=== PATIENT | female | born 1970 | race Caucasian/White ===

== ENCOUNTER → 2017-07-06 | Outpatient (CLI) | payer OTHER ==
--- NOTE | 2017-07-07 09:09 | MM ---
Reason for exam: screening (asymptomatic). Last mammogram was performed 1 year and 3 months ago. History: Family history of breast cancer in mother at age 57. Physical Findings: A clinical breast exam by your physician is recommended on an annual basis and results should be correlated with mammographic findings. MG Screening Mammo w CAD Bilateral CC and MLO view(s) were taken. Prior study comparison: March 27, 2016, bilateral MG screening mammo w CAD. June 25, 2010, bilateral digital screening mammogram. The breast tissue is heterogeneously dense. This may lower the sensitivity of mammography. Focal asymmetry lower right MLO view 9.7cm from nipple. This finding is changed when compared with previous exams. ASSESSMENT: Incomplete: need additional imaging evaluation, BI-RAD 0 RECOMMENDATION: Special view mammogram of the right breast. If lesion persists on supplemental views, image directed ultrasound is recommended. [facility] will attempt to contact patient to return for supplemental views and ultrasound if indicated.
== END | disposition home or self-care (01) ==
LOC: RADMAMWWP 10:56
PROVIDERS: ATTEND Family Medicine
DX: Z12.31 Encounter for screening mammogram for malignant neoplasm of breast (principal)
CPT/HCPCS: 77067

== ENCOUNTER → 2017-07-08 | Outpatient (CLI) | payer OTHER ==
--- NOTE | 2017-07-08 11:13 | MM ---
Reason for exam: additional evaluation requested from abnormal screening. Last mammogram was performed less than 1 month ago. History: Family history of breast cancer in mother at age 57. Physical Findings: Nurse Summary: 1cm nodule in the right breast at 3-4 o'clock (nurse kp). MG Work Up Mamm w CAD RT LM and spot compression MLO view(s) were taken of the right breast. Prior study comparison: July 06, 2017, bilateral MG screening mammo w CAD. March 27, 2016, bilateral MG screening mammo w CAD. The breast tissue is heterogeneously dense. This may lower the sensitivity of mammography. There is no discrete abnormality. Area disperses normally with compression. These results were verbally communicated with the patient and result sheet given to the patient on 07/08/17. ASSESSMENT: Incomplete: need additional imaging evaluation, BI-RAD 0 RECOMMENDATION: Ultrasound of the right breast.
--- NOTE | 2017-07-08 11:17 | USB ---
Reason for exam: additional evaluation requested from abnormal screening. History: Family history of breast cancer in mother at age 57. US Breast Workup Limited RT Right breast ultrasound demonstrates a 0.9 x 1.0 x 0.3cm oval, hypoechoic lesion at 3 o'clock, superficial subcutaneous tissue. These results were verbally communicated with the patient and result sheet given to the patient on 07/08/17. ASSESSMENT: Probably benign, BI-RAD 3 RECOMMENDATION: Return to routine screening mammogram schedule for both breasts. Manage on a clinical basis with regard to patient skin lesion.
== END | disposition home or self-care (01) ==
LOC: RADMAMWWP 09:44
PROVIDERS: ATTEND Family Medicine
DX: R92.8 Other abnormal and inconclusive findings on diagnostic imaging of breast (principal)
CPT/HCPCS: 77065

== ENCOUNTER → 2020-10-31 | Outpatient (CLI) | payer OTHER ==
--- NOTE | 2020-11-05 09:26 | MM ---
Reason for exam: screening (asymptomatic). Last mammogram was performed 3 years and 4 months ago. History: Patient history of other cancer. Family history of breast cancer in mother at age 57. Taking hormonal contraceptives for 3 years. Physical Findings: A clinical breast exam by your physician is recommended on an annual basis and results should be correlated with mammographic findings. MG Screening Mammo w CAD Bilateral CC and MLO view(s) were taken. XCCL view(s) were taken of the right breast. Prior study comparison: July 08, 2017, right breast MG work up mamm w CAD RT. July 06, 2017, bilateral MG screening mammo w CAD. The breast tissue is heterogeneously dense. This may lower the sensitivity of mammography. ASSESSMENT: Benign, BI-RAD 2 RECOMMENDATION: Routine screening mammogram of both breasts in 1 year.
== END | disposition home or self-care (01) ==
LOC: RADMAMWWP 12:39
PROVIDERS: ATTEND Family Medicine
DX: Z12.31 Encounter for screening mammogram for malignant neoplasm of breast (principal); Z80.3 Family history of malignant neoplasm of breast
CPT/HCPCS: 77067

== ENCOUNTER → 2022-02-25 | Outpatient (CLI) | payer OTHER ==
--- NOTE | 2022-03-03 15:16 | MM ---
Reason for Exam: Screening (asymptomatic). Last mammogram was performed 1 year(s) and 4 month(s) ago. Patient History: Menarche at age 15. First Full-Term at age 20. Other cancer. Currently using Hormonal Contraceptives, for 3 years. Mother had breast cancer, age 57. Risk Values: Britney 5 year model risk: 1.7%. NCI Lifetime model risk: 16.3%. Prior Study Comparison: 07/06/2017 Bilateral Screening Mammogram, [facility]. 07/08/2017 Right Diagnostic Mammogram, [facility]. 10/31/2020 Bilateral Screening Mammogram, [facility]. Tissue Density: There are scattered fibroglandular densities. Findings: Analyzed By CAD. Pattern is stable. No suspicious groups of microcalcifications, spiculated or lobular masses, architectural distortion or other secondary signs of malignancy are mammographically apparent. Overall Assessment: Benign, BI-RAD 2 Management: Screening Mammogram of both breasts in 1 year. A negative mammogram report should not preclude additional follow up of suspicious palpable abnormalities. Patient should continue monthly self breast exam. A clinical breast exam by your physician is recommended on an annual basis and results should be correlated with mammographic findings. Electronically signed and approved by: Kit Casas D.O. Radiologis
== END | disposition home or self-care (01) ==
LOC: RADMAMWWP 15:55
PROVIDERS: ATTEND Family Medicine
DX: Z12.31 Encounter for screening mammogram for malignant neoplasm of breast (principal); Z80.3 Family history of malignant neoplasm of breast
CPT/HCPCS: 77067

== ENCOUNTER → 2023-03-19 | Outpatient (CLI) | payer OTHER ==
--- NOTE | 2023-03-20 21:12 | MM ---
Reason for Exam: Screening (asymptomatic). Last mammogram was performed 1 year(s) and 1 month(s) ago. Patient History: Menarche at age 15. First Full-Term at age 20. Other cancer. Currently using Hormonal Contraceptives, for 3 years. Mother had breast cancer, age 57. Last menstrual period: 03/06/2023 Risk Values: Britney 5 year model risk: 1.8%. NCI Lifetime model risk: 16.0%. Prior Study Comparison: 07/08/2017 Right Diagnostic Mammogram, [facility]. 10/31/2020 Bilateral Screening Mammogram, [facility]. 02/25/2022 Bilateral MG screening mammo w CAD, [facility]. Tissue Density: There are scattered fibroglandular densities. Findings: Analyzed By CAD. In the right breast on the MLO view, superiorly and anterior to middle depth, in area of asymmetric density persists on 3-D images. Further evaluation is recommended. Otherwise, no significant change. Overall Assessment: Incomplete: need additional imaging evaluation, BI-RAD 0 Management: Special View Mammogram of the right breast. Diagnostic Breast Ultrasound of the right breast. Additional views to include spot 3-D MLO and 3-D lateral views. Targeted right breast ultrasound if any persistent abnormality. [facility] will attempt to contact patient to return for supplemental views and ultrasound if indicated. Electronically signed and approved by: Santa Fox M.D. Radiologist
== END | disposition home or self-care (01) ==
LOC: RADMAMWWP 14:50
PROVIDERS: ATTEND Family Medicine
DX: Z12.31 Encounter for screening mammogram for malignant neoplasm of breast (principal); Z80.3 Family history of malignant neoplasm of breast
CPT/HCPCS: 77063; 77067

== ENCOUNTER → 2023-04-22 | Outpatient (CLI) | payer OTHER ==
--- NOTE | 2023-04-22 13:59 | MM ---
Reason for Exam: Follow-up at short interval from prior study. Last screening mammogram was performed 1 month(s) ago. Patient History: Menarche at age 15. First Full-Term at age 20. Other cancer. Currently using Hormonal Contraceptives, for 3 years. Mother had breast cancer, age 57. Last menstrual period: 04/15/2023 Risk Values: Britney 5 year model risk: 1.8%. NCI Lifetime model risk: 16.0%. Tissue Density: Right: The breast tissue is heterogeneously dense. This may lower the sensitivity of mammography. Findings: Analyzed By CAD. The questioned area of asymmetric density superiorly becomes less defined on 3-D and standard 3-D lateral views suggesting superimposition shadow. Given the appearance on the screening exam, precautionary six-month follow-up is recommended. Overall Assessment: Probably benign, BI-RAD 3 Management: Diagnostic Mammogram of the right breast in 6 months. . Results were given to the patient verbally at the time of exam. Patient should continue monthly self-breast exams. A clinical breast exam by your physician is recommended on an annual basis. This exam should not preclude additional follow-up of suspicious palpable abnormalities. Note on Britney scores and lifetime risk: 1. A Britney score greater than 3% is considered moderate risk. If this is the case, consider specialist referral to assess eligibility for a risk reducing agent. 2. If overall lifetime risk for the development of breast cancer is 20% or higher, the patient may qualify for future screening with alternating mammogram and breast MRI. Electronically signed and approved by: Santa Fox M.D. Radiologist
== END | disposition home or self-care (01) ==
LOC: RADMAMWWP 13:24
PROVIDERS: ATTEND Family Medicine
DX: R92.331 Mammographic heterogeneous density, right breast (principal); Z80.3 Family history of malignant neoplasm of breast
CPT/HCPCS: 77065; G0279; 77061

== ENCOUNTER → 2023-10-22 | Outpatient (CLI) | payer OTHER ==
--- NOTE | 2023-10-22 15:06 | MM ---
Reason for Exam: Follow-up at short interval from prior study. Last screening mammogram was performed 7 month(s) ago. Patient History: Menarche at age 15. First Full-Term at age 20. Other cancer. Currently using Hormonal Contraceptives, for 3 years. Mother had breast cancer, age 57. Risk Values: Britney 5 year model risk: 1.9%. NCI Lifetime model risk: 15.8%. Prior Study Comparison: 02/25/2022 Bilateral MG screening mammo w CAD, [facility]. 03/19/2023 Bilateral MG 3D screening mammo w/cad, [facility]. 04/22/2023 Right MG 3D work up w/cad RT, [facility]. Tissue Density: Right: The breasts are heterogeneously dense, which may obscure small masses. Findings: Analyzed By CAD. The previous superior asymmetric density has not persisted. Findings compatible with superimposition shadow. Chronic nodularity inferior at a middle depth. No significant change from prior exams. Overall Assessment: Benign, BI-RAD 2 Management: Screening Mammogram of both breasts in 6 months. . Results were given to the patient verbally at the time of exam. Patient should continue monthly self-breast exams. A clinical breast exam by your physician is recommended on an annual basis. This exam should not preclude additional follow-up of suspicious palpable abnormalities. Note on Britney scores and lifetime risk: 1. A Britney score greater than 3% is considered moderate risk. If this is the case, consider specialist referral to assess eligibility for a risk reducing agent. 2. If overall lifetime risk for the development of breast cancer is 20% or higher, the patient may qualify for future screening with alternating mammogram and breast MRI. Electronically signed and approved by: Santa Fox M.D. Radiologist
== END | disposition home or self-care (01) ==
LOC: RADMAMWWP 14:21
PROVIDERS: ATTEND Family Medicine
DX: R92.331 Mammographic heterogeneous density, right breast (principal); Z80.3 Family history of malignant neoplasm of breast
CPT/HCPCS: 77065; G0279; 77061

== ENCOUNTER → 2023-10-22 | Outpatient (CLI) | payer OTHER ==
--- NOTE | 2023-10-22 15:45 | CTL ---
EXAMINATION TYPE: CT Low Dose Lung DATE OF EXAM ORDERED: 10/22/2023 HISTORY: Lung cancer screening CT DLP: 157.[address] CTDI: 4.0 mGy Automated exposure control for dose reduction was used. COMPARISON: None TECHNIQUE: Low dose computed tomography scan was performed through the chest at 1 mm thick sections a nd reconstructed images in multiple planes at 1 mm and [address] DIAGNOSTIC QUALITY: Satisfactory FINDINGS: There is no suspicious lung mass or nodule The lungs are clear and there is no abnormal consolidation or interstitial density. There are bilateral single short axis 15 mm axillary lymph nodes. Represent reactionary lymph nodes b ut short-term follow-up or fine needle aspiration is recommended. There is no pleural effusion, pleural thickening or pneumothorax. No focal osseous lesions are seen. Limited scans the upper abdomen reveals no gross adenopathy. IMPRESSION: 1. BI-RADS Category 1 negative. Continue routine screening at yearly intervals. 2. Mild bilateral axillary adenopathy. Short-term follow-up or fine needle aspiration is recommended.
== END | disposition home or self-care (01) ==
LOC: RADCTMAIN 13:53
PROVIDERS: ATTEND Family Medicine
DX: Z12.2 Encounter for screening for malignant neoplasm of respiratory organs (principal); R59.0 Localized enlarged lymph nodes; F17.210 Nicotine dependence, cigarettes, uncomplicated
CPT/HCPCS: 71271

== ENCOUNTER → 2024-10-04 | Outpatient (CLI) | payer OTHER ==
--- NOTE | 2024-10-05 07:37 | MM ---
Reason for Exam: Screening (asymptomatic). Last mammogram was performed 1 year(s) and 6 month(s) ago. Patient History: Menarche at age 15. First Full-Term at age 20. Perimenopausal. Other cancer. Currently using Hormonal Contraceptives, for 3 years. Mother had breast cancer, age 57. Last menstrual period: 10/04/2024 Risk Values: Britney 5 year model risk: 2.0%. NCI Lifetime model risk: 15.5%. Prior Study Comparison: 03/19/2023 Bilateral MG 3D screening mammo w/cad, [facility]. 04/22/2023 Right MG 3D work up w/cad RT, [facility]. 10/22/2023 Right MG 3D diag mammo w/cad RT, [facility]. Tissue Density: The breasts are heterogeneously dense, which may obscure small masses. Findings: Analyzed By CAD. There is no suspicious group of microcalcifications or new suspicious mass in either breast. Overall Assessment: Benign, BI-RAD 2 Management: Screening Mammogram of both breasts in 1 year. . Patient should continue monthly self-breast exams. A clinical breast exam by your physician is recommended on an annual basis. This exam should not preclude additional follow-up of suspicious palpable abnormalities. Note on Britney scores and lifetime risk: 1. A Britney score greater than 3% is considered moderate risk. If this is the case, consider specialist referral to assess eligibility for a risk reducing agent. 2. If overall lifetime risk for the development of breast cancer is 20% or higher, the patient may qualify for future screening with alternating mammogram and breast MRI. [facility], , 10/05/2024 7:34 AM. Electronically signed and approved by: Alber Ferrari M.D. Radiologis
== END | disposition home or self-care (01) ==
LOC: RADMAMWWP 16:34
PROVIDERS: ATTEND Family Medicine
DX: Z12.31 Encounter for screening mammogram for malignant neoplasm of breast (principal); R92.333 Mammographic heterogeneous density, bilateral breasts; Z80.3 Family history of malignant neoplasm of breast; Z92.0 Personal history of contraception
CPT/HCPCS: 77067